=== PATIENT | male | born 1975 | race Caucasian/White ===

== ENCOUNTER 2021-01-31 07:16 | Emergency (ER) | payer BC, OTHER ==
[~2021-01-31] VITALS: Ht 175.3 cm; Wt 117.9 kg
[~2021-01-31 07:16] MED LIST: ONDANSETRON ODT8 MG PO; TAMIFLU75 MG PO
[2021-01-31] MEDS ORDERED: DEXAMETHASONE SOD PHOS 10 MG/1 ML VIAL IM ONE (07:30)
[2021-01-31] MEDS ORDERED: KETOROLAC TROMETHAMINE 60 MG/2 ML VIAL IM ONE (07:30)
== END 2021-01-31 08:05 | disposition home or self-care (01) ==
LOC: ER 07:20
DX: M54.5 Low back pain (principal)
CPT/HCPCS: 99282

== ENCOUNTER → 2021-07-07 | Outpatient (CLI) | payer OTHER ==
[~2021-07-07] MED LIST changes: +COVID-19 VACC, MRNA(MODERNA)/PF 100 MCG/0.5 ML VIAL IM ONE
== END ==
LOC: VACCPMC 16:24
DX: Z23 Encounter for immunization (principal); Z20.822 Contact with and (suspected) exposure to COVID-19
CPT/HCPCS: 91301